=== PATIENT | male | born 1960 | race Caucasian/White ===

== ENCOUNTER 2016-10-01 14:11 | Emergency (ER) | payer OTHER ==
[2016-10-01 14:20] VITALS: RESP 16
--- NOTE | 2016-10-01 14:39 | EDPHY ---
H & P Stated Complaint: 15 FT FALL / LADDER SLIDE OUT FROM UNDER HIM, ABD PAIN TODAY Time Seen by Provider: 10/01/16 14:39 HPI/ROS: CHIEF COMPLAINT: Left shoulder pain, left lower chest wall and upper abdominal pain following mechanical fall yesterday HISTORY OF PRESENT ILLNESS: The patient was working on a ladder yesterday when he fell. The patient landed on his left shoulder, left chest wall and has had progressive left chest wall and upper abdominal pain for the past day. The patient denies any lightheadedness or syncope. The patient denies headache, neck pain, numbness or weakness. The patient has moderate pain with attempted movement in his left shoulder. The patient denies any complaints of lower extremity pain or immobility. The patient denies any recent medical problems such as fever, cough, congestion palpitations or chest pain. The patient was seen at urgent care referred to the ED for further evaluation. REVIEW OF SYSTEMS: A comprehensive 10 point review of systems is otherwise negative aside from elements mentioned in the history of present illness. Source: Patient Exam Limitations: No limitations - Personal History Current Tetanus Diphtheria and Acellular Pertussis (TDAP): Unsure - Medical/Surgical History Other PMH: DENIES - Social History Smoking Status: Current every day smoker - Physical Exam Exam: General Appearance: Alert, mild discomfort Head: Atraumatic Eyes: Pupils equal, round, reactive ENT, Mouth: No hemotympanum, no oral trauma Neck: Nontender, trachea midline, cleared via nexus criteria Respiratory: Tenderness to palpation left anterior chest wall, no subcutaneous emphysema Cardiovascular: Regular rate and rhythm Abdomen: Tenderness to palpation left upper quadrant Skin: No lacerations, No abrasion Back: No midline T/L/S pain Extremities: Tenderness to palpation and decreased range of motion noted left shoulder, remainder of musculoskeletal examination demonstrates no evidence of a traumatic injury. Neurological: A&Ox3, normal motor function, normal sensory exam, GCS 15 Constitutional: Initial Vital Signs Temperature (C) 36.9 C 10/01/16 14:17 Heart Rate 94 10/01/16 14:17 Respiratory Rate 16 10/01/16 14:17 Blood Pressure 157/118 H 10/01/16 14:17 O2 Sat (%) 97 10/01/16 14:17 O2 Delivery Mode Room Air Allergies/Adverse Reactions: No Known Allergies Allergy (Unverified 10/01/16 14:15) Home Medications: Medication Instructions Recorded Hydrocodone/APAP 5/325 [[place] 1 - 2 each PO Q6 PRN #20 tab 10/01/16 5/325] Zoloft 10/01/16 Medical Decision Making - Diagnostics Imaging Results: Imaging Impressions Chest X-Ray 10/01/16 14:54 Impression: 1. Clear lungs. No pneumothorax or effusion. 2. Acute left humeral greater tuberosity fracture. Shoulder X-Ray 10/01/16 14:54 Impression: Acute left greater tuberosity fracture. CT abdomen pelvis: Images reviewed by myself and discussed with radiologist, no evidence of intra-abdominal hemorrhage or retroperitoneal hemorrhage, buckle fractures noted to the left 8th and 9th ribs. ED Course/Re-evaluation: The patient presents to the ED for evaluation of left shoulder, chest and abdominal pain following a mechanical fall. The patient is noted to have an avulsion fracture of the greater tuberosity of his left humerus. The patient will be placed in a sling for this injury and advised to follow up with Orthopedic surgery. Additionally, the patient has some nondisplaced left rib fractures. Specifically, the patient has no evidence of an intra-abdominal hemorrhage or retroperitoneal hemorrhage. The patient was monitored throughout his stay in the emergency department without evidence of hypotension or detectable neurovascular deficits. The patient will be discharged home with customary aftercare instructions. Differential Diagnosis: Differential diagnosis considered includes rib fracture, splenic injury, intra- abdominal injury, retroperitoneal injury, rib fracture, pneumothorax, extremity fracture - Data Points Laboratory Results: 10/01/16 14:48 POC Hgb 15.3 gm/dL gm/dL (13.7-17.5) POC Hct 45 % % (40-51) POC Sodium 142 mEq/L mEq/L (134-144) POC Potassium 3.6 mEq/L mEq/L (3.3-5.0) POC Chloride 103 mEq/L mEq/L (97-110) POC BUN 18 mg/dL mg/dL (7-23) POC Creatinine 0.9 mg/dL mg/dL (0.7-1.3) POC Glucose 115 mg/dL H mg/dL (70-100) Point of Care Test Results: 10/01/16 14:48 POC Sodium 142 POC Potassium 3.6 POC Chloride 103 POC BUN 18 POC Creatinine 0.9 POC Glucose 115 H Departure - Departure Disposition: Home, Routine, Self-Care Clinical Impression: Multiple rib fractures, Greater tuberosity of humerus fracture Condition: Good Instructions: Rib Fracture (ED), Proximal Humerus Fracture (ED) Additional Instructions: 1. You have a small avulsion fracture in your left shoulder. Please wear sling for comfort and schedule a follow-up appointment with the orthopedic surgeon you have been referred to, Dr. Blandon, for an evaluation next week. 2. You have evidence of 2 rib fractures noted in your left 8th and 9th ribs. 3. Take Ibuprofen or Motrin 600 mg by mouth three times a day. 4. [place] as needed for pain. Referrals: Raissa Blandon MD [Medical Doctor] - As per Instructions
[2016-10-01] MEDS ORDERED: IOPAMIDOL (ISOVUE-300) 100 ML BTL ONE (15:30)
[2016-10-01 16:56] VITALS: BP 168/103; PULSE 82; TEMP 97.5; O2SAT 96
== END 2016-10-01 16:55 | disposition home or self-care (01) ==
DX: S42.252A Displaced fracture of greater tuberosity of left humerus, initial encounter for closed fracture (principal); S22.42XA Multiple fractures of ribs, left side, initial encounter for closed fracture; W11.XXXA Fall on and from ladder, initial encounter; Y92.69 Other specified industrial and construction area as the place of occurrence of the external cause; Y99.0 Civilian activity done for income or pay; Y93.89 Activity, other specified; F17.200 Nicotine dependence, unspecified, uncomplicated
CPT/HCPCS: 82947-QW; A4565; Q9967